=== PATIENT | female | born 1950 | race Caucasian/White ===

== ENCOUNTER → 2016-09-04 | Outpatient (CLI) | payer OTHER ==
[~2016-09-04] MED LIST: PROAIR HFA8.5 GM INH
== END ==
LOC: KOH-I 14:06
DX: M54.31 Sciatica, right side (principal); M13.851 Other specified arthritis, right hip; I12.9 Hypertensive chronic kidney disease with stage 1 through stage 4 chronic kidney disease, or unspecified chronic kidney disease; N18.2 Chronic kidney disease, stage 2 (mild); E53.9 Vitamin B deficiency, unspecified; R10.811 Right upper quadrant abdominal tenderness; E78.2 Mixed hyperlipidemia; J20.9 Acute bronchitis, unspecified; J30.89 Other allergic rhinitis; J45.20 Mild intermittent asthma, uncomplicated; K59.1 Functional diarrhea; R73.09 Other abnormal glucose; M47.896 Other spondylosis, lumbar region; Z96.641 Presence of right artificial hip joint
CPT/HCPCS: 72110; 73522

== ENCOUNTER → 2020-08-01 | Outpatient (CLI) | payer OTHER ==
[~2020-08-01] MED LIST changes: +ALLEGRA ALLERG180 MG PO; +BENADRYL 25MG C25 MG PO; +BIOTIN1 M1 PO; +CLOTRIMAZOLE-BE30 ML TP; +COREG CR10 MG PO; +CRESTOR10 MG PO; +DULERA 200 MCG8.8 GM INH; +ELIQUIS 2.5 MG2.5 MG PO; +ELIQUIS2.5 MG PO; +FLEXERIL 10 MG10 MG PO; +HYDROCHLOROTHIA25 MG PO; +LIORESAL TAB 1010 MG PO; +MECLIZINE HCL25 MG PO; +NAPROSYN500 MG PO; +NATURAL POTASSIUM PO; +PERCOCET 5-3251 EACH PO; +PERCOCET 5/325 T1 EA PO; +PERCOCET 7.5-31 EACH PO; +POTASSIUM CHLO10 ME2 PO; +TESSALON PERLE100 MG PO; +TYLENOL 500 MG500 MG PO; +VENTOLIN HFA 66.7 GM INH; +VITAMIN B-121000 MCG PO; +VITAMIN D 11000 UNIT PO; +[UNRECOGNIZED DRUG - OTHER] PR
[2020-08-01 11:32] LABS: BUN/CREATININE RATIO 19 (0-10)
== END ==
LOC: LAB 10:02
PROVIDERS: Emergency Medicine
DX: I10 Essential (primary) hypertension (principal); E78.2 Mixed hyperlipidemia; J30.89 Other allergic rhinitis; J20.9 Acute bronchitis, unspecified; J45.20 Mild intermittent asthma, uncomplicated; Z88.5 Allergy status to narcotic agent; Z88.0 Allergy status to penicillin
CPT/HCPCS: 36415; 80048

== ENCOUNTER → 2020-09-13 | Outpatient (CLI) | payer OTHER ==
[2020-09-13 09:54] LABS: BUN/CREATININE RATIO 16 (0-10)
== END ==
LOC: LAB 09:08
PROVIDERS: Emergency Medicine
DX: I12.9 Hypertensive chronic kidney disease with stage 1 through stage 4 chronic kidney disease, or unspecified chronic kidney disease (principal); N18.2 Chronic kidney disease, stage 2 (mild); E78.2 Mixed hyperlipidemia; R73.09 Other abnormal glucose; Z88.0 Allergy status to penicillin; Z88.5 Allergy status to narcotic agent
CPT/HCPCS: 36415; 80048

== ENCOUNTER → 2020-12-26 | Outpatient (CLI) | payer OTHER ==
[2020-12-26 10:48] LABS: BUN/CREATININE RATIO 14 (0-10)
[2020-12-28 14:15] LABS: CHOLESTEROL, TOTAL 141 mg/dL (100-199); HDL SIZE 8.9 nm (>=9.2); HDL-C 43 mg/dL (>39); LARGE HDL-P 4.3 umol/L (>=4.8); LARGE VLDL-P 4.6 nmol/L (<=2.7); LDL SIZE 21.1 nm (>20.5); LDL SIZE 21.1 nm (>=20.8); LDL-C 77 mg/dL (0-99); LDL-P 1068 nmol/L (<1000); LP-IR SCORE 57 (<=45); SMALL LDL-P 497 nmol/L (<=527); TRIGLYCERIDES 117 mg/dL (0-149); VLDL SIZE 49.9 nm (<=46.6)
== END ==
LOC: LAB 09:01
PROVIDERS: Emergency Medicine
DX: Z00.01 Encounter for general adult medical examination with abnormal findings (principal); I12.9 Hypertensive chronic kidney disease with stage 1 through stage 4 chronic kidney disease, or unspecified chronic kidney disease; N18.30 Chronic kidney disease, stage 3 unspecified; E78.2 Mixed hyperlipidemia; E53.9 Vitamin B deficiency, unspecified; E53.8 Deficiency of other specified B group vitamins
CPT/HCPCS: 36415; 80053; 80061; 83704

== ENCOUNTER → 2021-02-14 | Outpatient (CLI) | payer OTHER | LOC: RAD 10:12 | DX: Z47.1 Aftercare following joint replacement surgery (principal); Z96.652 Presence of left artificial knee joint; M25.462 Effusion, left knee; R93.6 Abnormal findings on diagnostic imaging of limbs | CPT/HCPCS: 73560 ==

== ENCOUNTER → 2021-03-13 | Outpatient (CLI) | payer OTHER | LOC: LAB 09:11 | PROVIDERS: Emergency Medicine | DX: I12.9 Hypertensive chronic kidney disease with stage 1 through stage 4 chronic kidney disease, or unspecified chronic kidney disease (principal); N18.2 Chronic kidney disease, stage 2 (mild); E78.2 Mixed hyperlipidemia; R73.09 Other abnormal glucose | CPT/HCPCS: 36415; 80048 ==

== ENCOUNTER → 2021-06-04 | Outpatient (CLI) | payer OTHER ==
[2021-06-04 10:23] LABS: HEMOGLOBIN 14.1 gm/dl (12.3-15.3); RED BLOOD COUNT 4.44 M/UL (4.00-5.10); WHITE BLOOD COUNT 6.3 K/UL (4.5-11.0)
[2021-06-06 11:15] LABS: CHOLESTEROL, TOTAL 154 mg/dL (100-199); HDL SIZE 8.9 nm (>=9.2); HDL-C 48 mg/dL (>39); HDL-P (TOTAL) 30.2 umol/L (>=30.5); LARGE HDL-P 5.4 umol/L (>=4.8); LARGE VLDL-P 6.3 nmol/L (<=2.7); LDL SIZE 21.1 nm (>20.5); LDL SIZE 21.1 nm (>=20.8); LDL-C 84 mg/dL (0-99); LDL-P 1175 nmol/L (<1000); LP-IR SCORE 60 (<=45); SMALL LDL-P 541 nmol/L (<=527); TRIGLYCERIDES 123 mg/dL (0-149); VLDL SIZE 51.1 nm (<=46.6)
== END ==
LOC: LAB 09:29
PROVIDERS: Emergency Medicine
DX: Z12.11 Encounter for screening for malignant neoplasm of colon (principal); I10 Essential (primary) hypertension; E78.2 Mixed hyperlipidemia; R73.09 Other abnormal glucose; R73.03 Prediabetes; E03.8 Other specified hypothyroidism
CPT/HCPCS: 36415; 80053; 80061; 83704; 84443; 84550; 85025

== ENCOUNTER → 2021-09-05 | Outpatient (CLI) | payer OTHER | LOC: RAD 10:02 | DX: M24.662 Ankylosis, left knee (principal); Z96.652 Presence of left artificial knee joint | CPT/HCPCS: 73560 ==